=== PATIENT | female | born 1995 | race Caucasian/White ===

== ENCOUNTER 2018-09-24 06:10 | Inpatient (IN) ==
[2018-09-24] MEDS ORDERED: D5LR 1L W PITOCIN 10 UNITS/L 10 UNITS/1,000 ML BAG IV PRN (06:44)
[2018-09-24] MEDS ORDERED: PITOCIN IVP ONE (06:44)
[2018-09-24] MEDS ORDERED: REGLAN INJ 10 MG VIAL IVP PRN (06:44)
[2018-09-24] MEDS ORDERED: D5 1/2 NS 1000 ML 1,000 ML ONE (06:44)
[2018-09-24] MEDS ORDERED: PHENERGAN INJ 25 MG IM PRN (06:44)
[2018-09-24] MEDS ORDERED: D5 1/2 NS 1L W PITOCIN 20 UNITS/L 20 UNITS/1,000 ML BAG IV ONE (06:54)
[2018-09-24] MEDS: D5 1/2 NS 1000 ML 1,000 ML IV SCH ×2 (07:00→15:40)
[2018-09-24 07:03] LABS: BILIRUBIN,URINE NEGATIVE (NEGATIVE); BLOOD/HEMOGLOBIN,URINE NEGATIVE (NEGATIVE); GLUCOSE, URINE NEGATIVE (NEGATIVE); KETONES,URINE NEGATIVE (NEGATIVE); LEUKOCYTE ESTERASE ,URINE 1+ (NEGATIVE); NITRITES,URINE NEGATIVE (NEGATIVE); PROTEIN,URINE NEGATIVE (NEGATIVE); UROBILINOGEN,URINE NORMAL (NORMAL)
[2018-09-24 07:11] LABS: APPEARANCE,URINE HAZY (CLEAR); COLOR,URINE YELLOW (YELLOW)
[2018-09-24 07:12] LABS: BACTERIA,URINE NEGATIVE /HPF (NEGATIVE); RBC,URINE NONE SEEN /HPF (NONE SEEN); SQUAMOUS EPITHELIAL CELL,UR RARE /HPF (NEGATIVE)
[2018-09-24 07:15] LABS: BASOPHILS % (AUTO) 0.3 % (0.2-1.0); EOSINOPHILS # (AUTO) 0.1 x10^3/uL (0.0-0.2); EOSINOPHILS % (AUTO) 1.3 % (0.9-2.9); HEMATOCRIT 36.7 % (36.0-47.0); HEMOGLOBIN 12.5 g/dL (12.0-16.0); LYMPHOCYTES % (AUTO) 28.9 % (21.0-51.0); MEAN CORPUSCULAR HEMOGLOBIN 28.6 pg (27.0-34.0); MEAN CORPUSCULAR VOLUME 84.1 fL (80.0-100.0); MEAN PLATELET VOLUME 9.6 fL (7.4-11.0); MONOCYTES # (AUTO) 0.5 x10^3/uL (0.3-0.8); MONOCYTES % (AUTO) 7.2 % (0.0-13.0); NEUTROPHILS # (AUTO) 4.2 x10^3/uL (2.2-4.8); NEUTROPHILS % (AUTO) 62.3 % (42.0-75.0); PLATELET COUNT 143 X10^3/uL (150.0-450.0); RED BLOOD COUNT 4.36 X10^6/uL (3.5-5.4); RED CELL DISTRIBUTION WIDTH 15.1 % (11.6-16.5); WHITE BLOOD COUNT 6.8 X10^3/uL (3.6-10.0)
[2018-09-24 07:21] LABS: BLOOD UREA NITROGEN 3 mg/dL (7-18); CALCIUM 8.7 mg/dL (8.5-10.1); CARBON DIOXIDE 26.8 mmol/L (21-32); CHLORIDE 104 mmol/L (98-107); CREATININE 0.53 mg/dL (0.55-1.02); SODIUM 139 mmol/L (136-145); eGFR NON BLACK RACES > 60 (>60)
[2018-09-24] MEDS ORDERED: NUBAIN INJ 10 ONE ×2 (08:44→11:40)
[2018-09-24] MEDS: NUBAIN INJ 200 MG VIAL MULTIDOSE IVP PRN ×2 (08:50→11:42)
[2018-09-24] MEDS ORDERED: DILAUDID INJ ONE (13:39)
[2018-09-24] MEDS: DILAUDID INJ IVP PRN ×2 (13:45→14:33)
[2018-09-24] MEDS ORDERED: D5 1/2 NS 1000 ML 1,000 ML with PITOCIN 20 UNITS IV SCH ×2 (16:00)
[2018-09-24] MEDS ORDERED: DERMOPLAST SPRAY TOP PRN (16:08)
[2018-09-24] MEDS ORDERED: MILK OF MAGNESIA PO PRN (16:08)
[2018-09-24] MEDS ORDERED: ADACEL or BOOSTRIX TDaP VACCINE IM ONE (16:08)
[2018-09-24] MEDS ORDERED: AMBIEN PO PRN (16:08)
[2018-09-24] MEDS: ZANTAC PO SCH (21:45)
[2018-09-25 04:12] LABS: HEMOGLOBIN 11.5 g/dL (12.0-16.0)
[2018-09-25] MEDS: MOTRIN TAB 800 MG PO PRN ×2 (07:50→21:54)
[2018-09-25] MEDS: ZANTAC PO SCH ×2 (08:00→21:54)
[2018-09-25] MEDS: PRENATAL PLUS PO SCH (08:00)
[2018-09-26 07:56] VITALS: BP 100/59
[2018-09-26] MEDS: ZANTAC PO SCH (08:04)
[2018-09-26] MEDS: PRENATAL PLUS PO SCH (08:04)
== END 2018-09-26 11:00 | disposition home or self-care (01) | DRG 807 ==
LOC: LD 06:10 → MED/SURG 16:12
PROVIDERS: ADMIT Obstetrics & Gynecology Obstetrics; ATTEND Obstetrics & Gynecology Obstetrics
DX: Z3A.39 39 weeks gestation of pregnancy; O71.82 Other specified trauma to perineum and vulva; Z23 Encounter for immunization; Z37.0 Single live birth
CPT/HCPCS: 36415; 59409; 80048; 81001; 85014; 85018; 85025; 86592; 86850; 86900; 86901; 90715; A4216; A4222; S0197; J1170; J2300; J2590; S5010